=== PATIENT | male | born 1990 | race Two or more races ===

== ENCOUNTER 2016-07-29 09:48 | Emergency (ER) | payer OTHER ==
[2016-07-29] MEDS ORDERED: Acetaminophen TAB* 325 MG PO ONE (13:21)
[2016-07-29] MEDS ORDERED: Acetaminophen TAB* 325 MG ONE (13:37)
[2016-07-29] MEDS ORDERED: Oseltamivir CAP* 75 MG PO ONE (13:49)
[2016-07-29 14:39] VITALS: BP 110/66
--- NOTE | 2016-08-08 12:09 | ED ---
Influenza-Like Illness - HPI Summary HPI Summary: Patient presents with one day of flu-like symptoms and a temperature of 103. He developed bodyaches, fever, chills, fatigue, runny nose and cough. He denies GARCIA , N/V/D, neck pain, abdominal pain, CP or SOB. He feels congested and fatigued. He took Tylenol last night with relief but has not used any today. - History of Current Complaint Chief Complaint: EDUpperRespComplaint Time Seen by Provider: 07/29/16 13:02 Hx Obtained From: Patient Onset/Duration: Gradual Onset Severity: Severe Associated Signs & Symptoms: Fever, T Max - 103, Myalgia, Cough, Nasal Congestion Related Hx: Possible Flu/Infectious Exposure - He is a student services advisor. - Allergy/Home Medications Allergies/Adverse Reactions: Allergies Allergy/AdvReac Type Severity Reaction Status Date / Time cats Allergy Eyes Uncoded 07/29/16 09:58 Itchy/Swollen/Red/Watery PMH/Surg Hx/FS Hx/Imm Hx Previously Healthy: Yes Infectious Disease History: No Infectious Disease History: Reports: Traveled Outside the in Last 30 Days - [facility] - Family History Known Family History: Positive: None - Social History Occupation: Student Lives: Alone Alcohol Use: Occasionally Substance Use Type: Reports: Cocaine Smoking Status (MU): Never Smoked Tobacco Review of Systems Positive: Fever, Chills, Fatigue Positive: Nasal Discharge. Negative: Sore Throat, Ear Ache Negative: Chest Pain Positive: Cough. Negative: Shortness Of Breath Negative: Abdominal Pain, Vomiting, Diarrhea, Nausea Positive: Myalgia. Negative: Edema Negative: Rash Negative: Headache, Weakness All Other Systems Reviewed And Are Negative: Yes Physical Exam Triage Information Reviewed: Yes Vital Signs On Initial Exam: Initial Vitals Temp Pulse Resp BP Pulse Ox 98.7 F 90 18 115/81 96 07/29/16 09:53 07/29/16 09:53 07/29/16 09:53 07/29/16 09:53 07/29/16 09:53 Vital Signs Reviewed: Yes Appearance: Positive: No Pain Distress, Well-Nourished, Ill-Appearing - patient does not appear toxic but does appear uncomfortable Skin: Positive: Warm, Skin Color Reflects Adequate Perfusion, Dry, Soft Head/Face: Positive: Normal Head/Face Inspection Eyes: Positive: EOMI, ZULEIMA, Conjunctiva Clear ENT: Positive: Hearing grossly normal, Pharynx normal, Nasal drainage, TMs normal Neck: Positive: Supple, Nontender, No Lymphadenopathy Respiratory/Lung Sounds: Positive: Clear to Auscultation, Breath Sounds Present. Negative: Rales, Rhonchi, Wheezes Cardiovascular: Positive: RRR Abdomen Description: Positive: Nontender, Soft Bowel Sounds: Positive: Present Musculoskeletal: Positive: Strength/ROM Intact. Negative: Edema Left, Edema Right Neurological: Positive: Sensory/Motor Intact, Alert, Oriented to Person Place, Time, NV Bundle Intact Distally, Normal Gait Psychiatric: Positive: Affect/Mood Appropriate AVPU Assessment: Alert Diagnostics - Vital Signs Vital Signs Temp Pulse Resp BP Pulse Ox 07/29/16 14:39 100.9 F 90 16 110/66 07/29/16 13:18 103 F 07/29/16 09:53 98.7 F 90 18 115/81 96 - Laboratory Lab Results: Lab Results 07/29/16 Range/Units 13:25 Influenza A (Rapid) Positive H (Negative) Influenza B (Rapid) Negative (Negative) Lab Statement: Any lab studies that have been ordered have been reviewed, and results considered in the medical decision making process. Flu Symptom Course/Dx - Diagnoses Differential Diagnosis/HQI/PQRI: Positive: Bronchitis, Influenza, Pneumonia, RSV , Upper Respiratory Infection Provider Diagnoses: Influenza A Discharge - Discharge Plan Condition: Stable Disposition: HOME Prescriptions: Oseltamivir CAP* [Tamiflu CAP*] 75 mg PO BID #9 cap Patient Education Materials: Influenza (ED) Forms: *Work Release Additional Instructions: Please take the Tamiflu as prescribed until it is completely gone. Take Acetaminophen 650mg every 4 hours and Ibuprofen 600mg every 6 hours to control your fever and body aches. Drink extra fluids and get plenty of rest. Follow-up with your primary care provider if your symptoms do not improve in the next 3-5 days. Return to the emergency department if your symptoms worsen.
== END 2016-07-29 14:39 | disposition home or self-care (01) ==
LOC: ED 09:48
DX: J11.1 Influenza due to unidentified influenza virus with other respiratory manifestations (principal); R50.9 Fever, unspecified; R05 Cough; M79.1 Myalgia
CPT/HCPCS: 87502; 99282; A9270-GY